=== PATIENT | male | born 1995 | race African-American/Black ===

== ENCOUNTER 2016-12-19 20:28 | Emergency (ER) | payer OTHER ==
[~2016-12-19] VITALS: Ht 176.5 cm; Wt 85.0 kg
[2016-12-19 20:48] VITALS: BP 137/72; PULSE 99; TEMP 36.9; O2SAT 98; Ht 176.5 cm; Wt 85.0 kg
--- NOTE | 2016-12-19 21:31 | DIAGNOSTIC IMAGING REPORT ---
LEFT ANKLE MIN 3 VIEWS ROUTINE CLINICAL HISTORY: L ANKLE PAIN trauma. Pain. COMPARISON: None. DISCUSSION: Oblique fracture distal fibula at the level of the lateral malleolus. Abnormal widening of the ankle mortise. Soft tissue edematous change laterally as well as medially. Small additional avulsion medially anterior to the distal tibia on the lateral projection are in this appears to potentially originate from the anterior margin of the fibula. Considerable soft tissue edema IMPRESSION: 1. Oblique fracture distal fibula with a small additional avulsion from the anterior fibula. 2. Widening ankle mortise The above report was generated using voice recognition software. It may contain grammatical, syntax or spelling errors. Electronically signed by: Kenan Levy M.D. 12/19/2016 9:30 PM Dictated Date/Time: 12/19/2016 9:28 PM
[2016-12-19] MEDS ORDERED: OXYC1TAB3 PO (21:39)
[2016-12-19] MEDS ORDERED: OXYCODONE IR HOME PACK PO ONE (22:15)
--- NOTE | 2016-12-19 22:42 | EMERGENCY ROOM VISIT NOTE ---
History First contact with patient: 21:03 Chief Complaint: ANKLE PAIN Stated Complaint: LEFT ANKLE SWELLING, PAIN History of Present Illness The patient is a 21 year old male who presents to the Emergency Room with complaints of left ankle swelling and pain. The patient reports that he twisted his ankle running down a hill last night and jumping onto a sidewalk. The patient reports persistent swelling and pain, rating his discomfort an 8 out of 10 with weightbearing. The patient denies any pain extending into the proximal leg or knee region. He denies paresthesias or numbness of the left foot or toes. Review of Systems 10 system review was performed and was negative except for pertinent positives and negatives as indicated in history of present illness Past Medical/Surgical History Medical Problems: (1) No significant past medical history Surgical Problems: (1) No history of previous surgery Family History FH: diabetes mellitus FH: heart disease FH: hypertension FH: kidney disease Social History Smoking Status: Current Some Day Smoker Alcohol Use: occasionally Drug Use: none Marital Status: single Housing Status: lives with roommate Occupation Status: employed Current/Historical Medications Scheduled PRN Oxycodone Ir (Roxicodone Ir), 1-2 TAB PO Q4H PRN for Pain Allergies Coded Allergies: No Known Allergies (Unverified , 12/19/16) Physical Exam Vital Signs Date Time Temp Pulse Resp B/P (MAP) Pulse Ox O2 Delivery O2 Flow Rate FiO2 12/19/16 20:48 36.9 99 16 137/72 98 Room Air Physical Exam CONSTITUTIONAL: Healthy and well nourished. Alert and oriented X 3 with positive affect. Patient does not appear in any acute distress on exam. HEENT: Normocephalic, atraumatic. Pupils equal, round and reactive. NECK: Full active range of motion without discomfort. RESPIRATORY: Clear to auscultation bilaterally with no wheezing, crackles, rhonchi or stridor. CARDIOVASCULAR: Regular rate and rhythm with no murmurs, rubs or gallops. MUSCULOSKELETAL: Examination shows diffuse edema of the left ankle. No open wounds noted. The patient has notable tenderness to palpation over the medial lateral ankle region. Positive anterior draw. No tenderness to palpation through the dorsal midfoot, metatarsals, phalanges, calcaneus, Achilles tendon or proximal fibular region. Pedal pulses are intact. INTEGUMENTARY: No rash or other significant dermatologic conditions noted. NEUROLOGIC: Left foot and toes are sensory intact. Medical Decision & Procedures ER Provider Diagnostic Interpretation: My interpretation of left ankle x-ray shows a comminuted distal fibular fracture with medial mortise widening, consistent with deltoid ligament rupture. Radiologist report is as follows: LEFT ANKLE MIN 3 VIEWS ROUTINE CLINICAL HISTORY: L ANKLE PAIN trauma. Pain. COMPARISON: None. DISCUSSION: Oblique fracture distal fibula at the level of the lateral malleolus. Abnormal widening of the ankle mortise. Soft tissue edematous change laterally as well as medially. Small additional avulsion medially anterior to the distal tibia on the lateral projection are in this appears to potentially originate from the anterior margin of the fibula. Considerable soft tissue edema IMPRESSION: 1. Oblique fracture distal fibula with a small additional avulsion from the anterior fibula. 2. Widening ankle mortise Medications Administered Medications (Trade) Dose Ordered Sig/Anderson Route Start Time Stop Time Status Last Admin Dose Admin Oxycodone HCl (Roxicodone Immediate Rel 5MG Home Pack) 1 homepack UD ONCE PO 12/19/16 22:15 12/19/16 22:16 DC 12/19/16 22:33 1 HOMEPACK ED Course Patient history and physical exam were performed. Nurse's notes were reviewed. Vital signs were reviewed and normal. The patient had gone to x-ray prior to my exam. X-rays of the ankle confirms a distal fibular fracture with medial ankle mortise widening. An ankle stirrup and posterior Ortho-Glass splint and crutches were applied. Neurovascular check after splint placement was normal. The patient was provided contact information for [facility] for further reevaluation and management. The patient does have [facility] medical assistance; he was encouraged to call his insurance carrier to see if he needs to plan other treatment options with his insurance coverage. He was administered OxyIR 5 mg after returning from x-ray, and was dispensed home packs and a prescription for OxyIR 5 mg. He was encouraged to ice and elevate ankle for swelling. I also encouraged alternating ibuprofen and Tylenol for additional baseline pain relief. The patient was happy with plan of care, voiced understanding of all discharge instructions, and rated his pain a 4 out of 10 at the conclusion of my exam. Medical Decision Impression Primary Impression: Closed fracture of left distal fibula Departure Information Dispostion Home / Self-Care Prescriptions Oxycodone Ir (Roxicodone Ir) 5 Mg Tab 1-2 TAB PO Q4H Y for Pain, #15 TAB For Initial Treatment Prov: Nagi Tijerina PA 12/19/16 Referrals Justin Varma D.O. Forms HOME CARE DOCUMENTATION FORM, IMPORTANT VISIT INFORMATION Patient Instructions My [facility] [email or web address] Additional Instructions Ice and elevate ankle for swelling and pain. No weight on splint - use crutches. Do not get splint wet. Ibuprofen 800 mg and/or Tylenol 1000 mg every 8 hours. You may also alternate these medications for more effective pain relief: Ibuprofen --4 HRS--> Tylenol --4 HRS--> ibuprofen --4 HRS--> Tylenol .... OxyIR if needed for worse pain. Do not drink alcohol or drive while taking OxyIR. Follow-up with [facility] (Dr. Varma) for further evaluation and treatment - call Wednesday a.m. for appointment. Suggest calling your insurance carrier as well to see if you can go to a local orthopedic surgeon. Problem Qualifiers Primary Impression: Closed fracture of left distal fibula Encounter type: initial encounter Fracture morphology: unspecified fracture morphology Qualified Codes: S82.832A - Other fracture of upper and lower end of left fibula, initial encounter for closed fracture
== END 2016-12-19 22:36 | disposition home or self-care (01) ==
LOC: C.EDB 20:29 → C.EDD 22:36
DX: S82.832A Other fracture of upper and lower end of left fibula, initial encounter for closed fracture (principal); X50.0XXA Overexertion from strenuous movement or load, initial encounter; Y93.89 Activity, other specified; Z83.3 Family history of diabetes mellitus; Z82.49 Family history of ischemic heart disease and other diseases of the circulatory system; Z84.1 Family history of disorders of kidney and ureter; F17.210 Nicotine dependence, cigarettes, uncomplicated